=== PATIENT | male | born 1995 | race Caucasian/White ===

== ENCOUNTER 2019-08-17 10:16 | Emergency (ER) | payer BC, OTHER ==
[~2019-08-17] VITALS: Ht 172.7 cm; Wt 99.8 kg
[2019-08-17 10:51] LABS: ABSOLUTE NEUTROPHILS 6.5 thou/uL (1.4-8.2); BASOPHILS 1.1 % (0.0-2.0); EOSINOPHILS 1.8 % (0.0-3.0); HEMATOCRIT 45.2 % (42.0-52.0); HEMOGLOBIN 15.3 gm/dL (14.0-18.0); LYMPHOCYTES 24.2 % (24.0-44.0); MCH 28.2 pg (26.0-34.0); MCHC 33.8 g/dL (28.0-37.0); MCV 83.4 fL (80.0-100.0); MONOCYTES 6.7 % (1.0-8.0); PLATELET COUNT 361 thou/uL (150-400); POLYS 66.2 % (36.0-66.0); RBC 5.42 mil/uL (4.50-6.00); RDW 12.7 % (10.5-14.5); WBC 9.8 thou/uL (4.0-11.0)
[2019-08-17 10:54] LABS: CALCIUM 9.6 mg/dL (8.5-10.1); CREATININE 0.8 mg/dL (0.7-1.3)
[2019-08-17 10:59] LABS: ALBUMIN 4.1 g/dL (3.4-5.0); TOTAL BILIRUBIN 0.3 mg/dL (<0.1-1.0); TOTAL PROTEIN 8.1 g/dL (6.4-8.2)
[2019-08-17] MEDS ORDERED: ACID CONTROLLER20 MG PO (11:10)
[2019-08-17 11:15] VITALS: BP 117/78
== END 2019-08-17 11:18 | disposition home or self-care (01) ==
LOC: ER 10:16
PROVIDERS: Emergency Medicine
DX: R10.9 Unspecified abdominal pain (principal); J45.909 Unspecified asthma, uncomplicated; Z98.890 Other specified postprocedural states